=== PATIENT | female | born 1935 | race Hispanic/Latino ===

== ENCOUNTER 2016-09-22 19:55 | Emergency (ER) | payer MEDICARE, MEDICAID ==
[~2016-09-22] VITALS: Ht 139.7 cm; Wt 68.6 kg
[~2016-09-22 19:55] MED LIST: ACET-171 PO; ALEN70TA2 PO; AMT25T PO; CALC600T20 PO; CANE-70 MC; CHOL10008 PO; FLUT16SP NS; HYDR-4003 PO; IBUP-1827 PO; METO25TA6 PO; MULT-1073 PO; NITR100 PO; OLP.1OP5 BOTH_EYES; OMEP20CA11 PO; PARO40TA47 PO; WALK1EAC55 MC; Wheelchair; [UNRECOGNIZED DRUG - OTHER]
[2016-09-22 20:31] VITALS: BP 137/90; PULSE 108; RESP 22; O2SAT 96
--- NOTE | 2016-09-22 21:18 | DRSVH ---
PROCEDURE: X-RAY RIGHT HUMERUS, MINIMUM TWO VIEWS ([id number]) INDICATIONS: PAIN AFTER FALL TECHNIQUE: 2 views of the humerus were acquired. COMPARISON: None. FINDINGS: Bones: No fractures or dislocations. No suspicious bony lesions. Soft tissues: No suspicious soft tissue calcifications. IMPRESSION: No acute bony abnormality is seen in the right humerus. Dictated by: Kyle Adam M.D. on 09/22/2016 at 21:16 Approved by: Kyle Adam M.D. on 09/22/2016 at 21:16
--- NOTE | 2016-09-22 23:40 | ED.REPORT ---
HPI-Extremity Problem Upper Date of Service Sep 22, 2016 ED Provider: Dave Young MD Pt is a 80 year old female with a hx of a pacemaker presenting to the ED complaining of right shoulder pain onset when she fell at [facility] today. The pt reports that she is unsure why she fell, she was going to sit down on the toilet and she lost her balance. She also reports a fever and a cough which is why she went to [facility] today. Denies SOB, dysuria, sore throat or vomiting. The cough was onset 3 days ago but the pt does not know when the fever began. She had a negative outpatient head CT with contrast at [facility] today to follow a known intracranial aneurism. Nursing Notes Stated Complaint: RT ELBOW PAIN Chief Complaint: Extremity Trauma Nursing Notes Reviewed: Yes Allergies: Coded Allergies: No Known Allergies (Verified , 11/25/15) Scheduled Alendronate Sodium (Fosamax) 70 Mg Tablet 70 MG PO every wednesday Calcium Carbonate (Calcium Carbonate) 600 Mg Tablet 600 MG PO TID Cholecalciferol (Vitamin D3) (Vitamin D3) 1,000 Unit Tab.chew 1,000 UNIT PO DAILY Metoprolol Tartrate (Metoprolol Tartrate) 25 Mg Tablet 25 MG PO BID Multivits-Min/FA/Lycopene/Lut (Centrum Silver Tablet) 1 Each Tablet 1 EACH PO DAILY Nitrofurantoin Monohyd/M-Cryst (MacroBid) 100 Mg Capsule 100 MG PO BID Olopatadine (Patanol) 5 Ml Soln 2 DRP BOTH_EYES TID Omeprazole (Omeprazole) 20 Mg Capsule.dr 20 MG PO DAILY Oseltamivir Phosphate (Tamiflu) 75 Mg Capsule 75 MG PO BID Paroxetine (Paxil) 40 Mg Tablet 40 MG PO DAILY Scheduled PRN Acetaminophen (Acetaminophen) 500 Mg Tablet 500 MG PO BID PRN PRN For Pain Amitriptyline (Amitriptyline) 25 Mg Tab 25 MG PO HS PRN PRN For Sleep Fluticasone Propionate (Fluticasone Propionate Nasal) 16 Gm [place].susp 1 SPRAY NS DAILY PRN PRN Allergies Hydrocodone-Acetaminophen 5-325 mg (Hydrocodone-Acetaminophen 5-325 mg) 1 Each Tablet 1 TABLET PO Q4H PRN PRN For Pain Ibuprofen (Ibuprofen) 600 Mg Tablet 600 MG PO TID PRN PRN For Pain General Time Seen by MD: 23:38 Chief Complaint Shoulder injury right Hx Obtained From: Patient, Daughter Arrived By: Walk-in Onset Occurred: Just prior to arrival Symptom Duration: Since onset Caused by: Accidental, Fall on ground Location: : Arm right: Shoulder right Quality: Painful Severity: Current: Moderate Severity: Maximum: Severe Associated with: Reports: Fever, Nausea, Denies: Vomiting Recent Healthcare: No recent hospitalization, Recent doctor visit Similar Sx Previous: No Past Medical History Past Medical History Depression, osteoporosis, borderline diabetes, difficulty with ambulation, 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 Ears / Nose / Throat: Denies: Sore throat Respiratory: Reports: Non-productive cough, Denies: Shortness of breath GI: Reports: Nausea, Denies: Vomiting Female: Denies: Dysuria Physical Exam Initial Vital Signs Vital Signs (First) Date Time Temp Pulse Resp B/P Pulse Ox O2 Delivery O2 Flow Rate FiO2 09/22/16 20:31 38.1 108 22 137/90 96 Room Air Initial VS: Reviewed General/Constitutional: Well-developed, Well-nourished Head / Eyes: Atraumatic, Normocephalic, PERRL ENT: Mucous membranes moist, Conjunctiva normal, No scleral icterus Respiratory: Breath sounds normal, Clear to auscultation, No respiratory distress Cardiovascular: Regular rate & rhythm, Heart sounds normal, Intact distal pulses Skin: Warm, Dry, No cyanosis Neurologic: Alert, Oriented, Nonfocal Psychiatric: Mood/affect normal, Behavior normal, Normal thought content Neck: Supple, No adenopathy Upper Extremity / MS: Neurologic intact, Vascular intact [place] okay. Tender over right proximal humerus. Interpretation & Diagnostics Lab Results Interpretation Test 09/23/16 00:15 Urine Color Yellow (YELLOW) Urine Appearance Hazy (CLEAR,HAZY) Urine pH 6.0 (5.0-8.0) Urine Specific [place] >1.030 (1.003-1.035) Urine Protein Negativemg/dL (NEG,TRACE) Urine Glucose (UA) Negativemg/dL (NEGATIVE) Urine Ketones Tracemg/dL (NEGATIVE) Urine Occult Blood Moderate (NEGATIVE) Urine Nitrite Positive (NEGATIVE) Urine Bilirubin Negative (NEGATIVE) Urine Urobilinogen Normalmg/dL (NORMAL) Urine Leukocyte Esterase Small (NEGATIVE) Urine RBC 3-10/hpf (0-2) Urine WBC >50/hpf (0-5) Urine Epithelial Cells Moderate/hpf (NONE-MOD) Urine Crystals None seen (NONE SEEN) Urine Bacteria Many/hpf (NONE-FEW) Urine Hyaline Casts None/lpf (NONE) Urine Granular Casts None seen (NONE SEEN) Urine Waxy Casts None seen (NONE SEEN) Urine Red Blood Cell Casts None seen (NONE SEEN) Urine White Blood Cell Casts None seen (NONE SEEN) Urine Mucus None seen (None Seen) Urine Trichomonas None seen (NONE SEEN) Urine Yeast None (NONE SEEN) Urinalysis Comment None Urine Culture Reflexed Indicated Lab Results Interpretation: Rapid influenza positive for influenza A X-Ray Chest Interpretation View: Portable Interpretation / Wet Read by: Wet read ED physician NL X-Ray Chest Findings: No infiltrate X-Ray Interpretation Xray Interpretation: Right Humerus: IMPRESSION: No acute bony abnormality is seen in the right humerus. Dictated by: Kyle Adam M.D. on 09/22/2016 at 21:16 Interpretation / Wet Read by: Interpret - Radiologist Re-Eval/Medical Decision Med Decision/Clinical Course Ground-level fall with right shoulder and arm pain, negative x-ray. Range of motion and neurovascular intact. She is noted to have a fever and a cough. Chest x-ray shows no acute infiltrate on my initial interpretation, she has a positive influenza screen. Will start her on Tamiflu and discharged home Re-Evaluation/Progress #1: Time of Eval: 23:48 Patient Status: Condition improved Re-Evaluation/Progress Note: Discussed humerus x ray results. Re-Evaluation/Progress #2: Time of Eval: 00:02 Patient Status: Condition improved Re-Evaluation/Progress Note: Discussed plan to get chest x ray. Counseled Regarding: Diagnosis, Lab results, Need for follow-up, When/why to return to ED Discharge & Departure Impression: Primary Impression: Fall from ground level Additional Impression: Influenza Disposition: Home Discharge Condition All VS Reviewed: Yes Condition: Improved Patient Instructions: Contusion (ED), Influenza (ED) Additional Instructions: In the emergency department today we evaluated your right arm injured in the fall. The arm is not broken and it is moving well. We expect that with some time this should feel better soon. May apply ice to sore areas, remove the ice after 10-15 minutes and keep ice pack wrapped in cloth. May use Tylenol as needed for pain. The fever and cough proved to be influenza. Tamiflu as prescribed until all gone. Get adequate rest and fluids, Tylenol as needed for fevers, stay home until fever resolves. Follow up with primary care next week, return emergency Department for increasing shortness of breath frequently vomiting. Referrals: Jurgen Arias MD (PCP) Scribe Attestation Portions of this note were transcribed by Jelena Loomis. I, Dr. Young personally performed the history, physical exam and medical decision-making; I reviewed and confirmed the accuracy of the information in the transcribed note. Signed by : Milla Orr, 09/22/16 and 0013. copies to: Jurgen Arias MD, Donald L MD Sep 22, 2016 23:40 JELENA LOOMIS Sep 22, 2016 23:54 JELENA LOOMIS Sep 22, 2016 23:54
[2016-09-23 00:06] VITALS: BP 120/75; PULSE 112; RESP 16; O2SAT 95
[2016-09-23 00:44] LABS: APPEARANCE,URINE HAZY (CLEAR,HAZY); COLOR,URINE YELLOW (YELLOW)
[2016-09-23 00:45] LABS: OCCULT BLOOD,URINE MODERATE (NEGATIVE); UROBILINOGEN,URINE NORMAL (NORMAL)
[2016-09-23] MEDS ORDERED: TAM75UDCAP PO (00:52)
[2016-09-23 01:10] VITALS: BP 120/75; PULSE 112; RESP 16; O2SAT 95
--- NOTE | 2016-09-23 08:00 | DRSVH ---
PROCEDURE: X-RAY CHEST ONE VIEW, PORTABLE ([id number]) INDICATIONS: fever and cough TECHNIQUE: One view of the chest was acquired. COMPARISON: [facility], , CHEST 2VW, 01/26/2014, 12:50. FINDINGS: Surgical changes and devices: Cholecystectomy clips. Cervical spine fixation hardware. Dual-chamber c ardiac pacer. Lungs and pleura: No pleural effusions or pneumothorax. Lungs are clear. Mediastinum: Mediastinal contours appear normal. Heart size is normal. Bones and chest wall: No suspicious bony lesions. Overlying soft tissues appear unremarkable. IMPRESSION: No acute cardiopulmonary disease process. Dictated by: Ruby Castillo MD, PhD on 09/23/2016 at 7:58 Approved by: Ruby Castillo MD, PhD on 09/23/2016 at 7:58
== END 2016-09-23 01:10 | disposition home or self-care (01) ==
LOC: SED 19:55
DX: J11.1 Influenza due to unidentified influenza virus with other respiratory manifestations (principal); M25.511 Pain in right shoulder; W18.30XA Fall on same level, unspecified, initial encounter; Y93.89 Activity, other specified; Y92.59 Other trade areas as the place of occurrence of the external cause; Y99.8 Other external cause status; Z95.0 Presence of cardiac pacemaker